=== PATIENT | female | born 1940 | race Caucasian/White ===

== ENCOUNTER 2019-01-26 19:52 | Emergency (ER) | payer MEDICARE, OTHER ==
[~2019-01-26] VITALS: Ht 170.2 cm; Wt 77.1 kg
--- OUTSIDE RECORDS SUMMARY | 2019-01-26 19:55 | XMS REPORT | Summary of Care ---
Author Author RELL ADDISON M.D. Organization Unknown Address Unknown Phone Unavailable Care Team Providers Care Rehabilitation Nurse Name Role Phone RELL ADDISON M.D. Unavailable Unavailable LEVAR RAMOS, WILBUR [place] Unavailable Unavailable Unavailable Unavailable Functional Status Name Dates Details Functional status health issues are not documented Status: Name Dates Details Cognitive status health issues are not documented Status: Problems Name Dates Details Influenza vaccine needed (V04.81, Z23) Status: Active Osteoporosis (733.00, M81.0) Status: Active Diabetes mellitus (250.00, E11.9) Status: Active Essential (primary) hypertension (401.9, I10) Status: Active Mixed hyperlipidemia (272.2, E78.2) Status: Active Hypothyroidism (244.9, E03.9) Status: Active Vitamin D deficiency (268.9, E55.9) Status: Active Medications Name Dates Details Synthroid 100 MCG Oral Tablet TAKE 1 TABLET BY MOUTH DAILY Quantity: 90 CYN M.D., RELL * Start : 23-Sep-2012 Active Calcium + D 600-200 MG-UNIT TABS TAKE 1 TABLET TWICE DAILY. * Refills: 0 CYN M.D., RELL * Start : 23-Sep-2012 Active Vitamin D 1000 UNIT CAPS 1 a day * Refills: 0 CYN M.D.RELL * Start : 23-Sep-2012 Active Janumet 50-500 MG Oral Tablet TAKE 1 TABLET BY MOUTH DAILY * Quantity: 90 Refills: 1 CYN M.D., RELL * Start : 23-Sep-2012 Active Multi Vitamin Daily TABS * Refills: 0 CYN M.D.RELL * Start : 23-Sep-2012 Active Aspirin Adult Low Strength 81 MG Oral Tablet Delayed Release TAKE 1 TABLET DAILY DIRECTED. * Refills: 0 CYN M.D., RELL * Start : 23-Sep-2012 Active Olmesartan Medoxomil-HCTZ 20-12.5 MG Oral Tablet TAKE 1 TABLET BY MOUTH DAILY * Quantity: 90 Refills: 1 CYN M.D., RELL * Start : 23-Sep-2012 Active Ezetimibe-Simvastatin 10-40 MG Oral Tablet TAKE 1 TABLET BY MOUTH EVERY NIGHT AT BEDTIME * Quantity: 90 Refills: 1 RELL ADDISON M.D. * Start : 23-Sep-2012 Active Vitamin E 400 UNIT Oral Capsule 1 a day * Refills: 0 RELL ADDISON M.D. * Start : 23-Sep-2012 Active Vitamin B-12 500 MCG Sublingual Tablet Sublingual 1 a day * Quantity: 100 Refills: 11 RELL ADDISON M.D. * Start : 11-Oct-2012 Active Alendronate Sodium 70 MG Oral Tablet TAKE 1 TABLET BY MOUTH ONCE WEEKLY, TAKE WITH 8 OZ OF WATER 30 TO 60 MINUTES BEF ORE BREAKFAST ON AN EMPTY STOMACH; DO NOT LIE SHAMEKA AFTER * Quantity: 12 Refills: 1 RELL ADDISON M.D. * Start : 11-Oct-2012 Active OneTouch Verio In Vitro Strip Check BG 1x a day * Quantity: 1 Refills: 3 RELL ADDISON M.D. * Start : 03-May-2016 Active 100 Strip Box OneTouch Delica Lancets Fine Check BG 1x a day * Quantity: 100 Refills: 3 RELL ADDISON M.D. 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 History of Fracture (829.0, T14.8XXA) Status: Resolved Procedures Procedure Dates Details History of Transsphenoidal Hypophysectomy Completed History of Cholecystectomy Completed History of Knee Replacement Completed History of Tonsillectomy Completed Immunization Name Dates Details Fluzone INJ Lot #: [id number] on: 10-Jul-2013 Fluzone INJ Lot #: [id number] on: 14-Aug-2014 Fluzone High-Dose 0.5 ML Intramuscular Suspension Prefilled Syringe Lot #: [id number] on: 01-Sep-2016 Fluzone High-Dose 0.5 ML Intramuscular Suspension Prefilled Syringe Lot #: [id number] on: 22-Aug-2017 Family History Name Dates Details Family history of Coronary Artery Disease (V17.49) Status: Active Social History Name Dates Details - Status: Name Dates Details Never smoker Vital Signs Date Test Result Details :36 BP Systolic 118 mm[Hg] Status: BP Diastolic 70 mm[Hg] Status: Heart Rate 90 /min Status: :23 BP Systolic 138 mm[Hg] Status: Comments: Location: E; Position: Sitting BP Diastolic 77 mm[Hg] Status: Comments: Location: E; Position: Sitting Heart Rate 111 /min Status: Height 69 in Status: Weight 166 lb Status: Body Mass Index Calculated 24.51 kg/m2 Status: Body Surface Area Calculated 1.91 m2 Status: Results Date Description Value Details :24 [O] Hemoglobin A1c (in office) HEMOGLOBIN A1c 5.9 :24 [O] Lipid Panel (In Office) CHOLESTEROL, TOTAL 136 HDL CHOLESTEROL 50 TRIGLYCERIDES 109 LDL-CHOLESTEROL 64 NON HDL CHOLESTEROL 86 T. Chol/HDL Ratio 2.7 GLUCOSE 117 :25 Glucose (Point of Care In Office) Glucose POC Lifescan 138 :08 [QL] CMP W/EGFR GLUCOSE 127 mg/dl (Above high threshold) Range: 65-99 Comments: Fasting reference interval For someone without known diabetes, a glucosevalue >125 mg/dL indicates that they may havediabetes and this should be confirmed with afollow-up test. UREA NITROGEN (BUN) 9 mg/dl (Normal) Range: 7-25 CREATININE 0.67 mg/dl (Normal) Range: 0.60-0.93 Comments: For patients >49 years of age, the reference limitfor Creatinine is approximately 13% higher for peopleidentified as -Maced[place]. eGFR NON- 84 {ML/MIN/1.7} (Normal) Range: > OR=60 eGFR 98 {ML/MIN/1.7} (Normal) Range: > OR=60 BUN/CREATININE RATIO NOT APPLICABLE {CALC} Range: 6-22 SODIUM 137 mmol/L (Normal) Range: 135-146 POTASSIUM 4.1 mmol/L (Normal) Range: 3.5-5.3 CHLORIDE 97 mmol/L (Below low threshold) Range: 98-110 CARBON DIOXIDE 30 mmol/L (Normal) Range: 20-31 CALCIUM 9.5 mg/dl (Normal) Range: 8.6-10.4 PROTEIN, TOTAL 6.9 g/dl (Normal) Range: 6.1-8.1 ALBUMIN 3.3 g/dl (Below low threshold) Range: 3.6-5.1 GLOBULIN 3.6 {G/DL__CALC} (Normal) Range: 1.9-3.7 ALBUMIN/GLOBULIN RATIO 0.9 {CALC} (Below low threshold) Range: 1.0-2.5 BILIRUBIN, TOTAL 0.4 mg/dl (Normal) Range: 0.2-1.2 ALKALINE PHSPHATASE 83 u/l (Normal) Range: 33-130 AST 21 u/l (Normal) Range: 10-35 ALT 21 u/l (Normal) Range: 6-29 [id number]-[id number] [[facility]] T4, FREE T4, FREE 1.4 ng/dl (Normal) Range: 0.8-1.8 0-Exp-[id number]:08 [[facility]] TSH, 3RD GENERATION TSH 2.71 {MIU/L} (Normal) Range: 0.40-4.50 0-Hyf-[id number]:08 [[facility]] VITAMIN D, 25-HYDROXY, LC/MS/MS Comments: REPORT COMMENT:FASTING:YES VITAMIN D,25-OH,TOTAL,IA 55 ng/ml (Normal) Range: 30-100 Comments: Vitamin D Status 25-OH Vitamin D: Deficiency: <20 ng/mLInsufficiency: 20 - 29 ng/mLOptimal: > or=30 ng/mL For 25-OH Vitamin D testing on patients on D2-supplementation and patients for whom quantitation of D2 and D3 fractions is required, the QuestAssureD()25-OH VIT D, (D2,D3), LC/MS/MS is recommended: order code [id number] (patients >2yrs). For more information on this test, go to:http://education.[email or web address]/faq/HFB618(This link is being provided for informational/educational purposes only.) Plan of Care Name Dates Details Planned Observations Planned Goals not documented Planned Encounters Appointment; RELL ADDISON M.D. On: 10-Apr-2018 9:30 Instructions Name Dates Details Instructions not documented Encounters Appointment; RELL ADDISON M.D. Encounter Diagnosis: Problem not documented On: 01-Jan-2016 9:30 Appointment; RELL ADDISON M.D. Encounter Diagnosis: Problem not documented On: 07-May-2016 9:30 Appointment; RELL ADDISON M.D. Encounter Diagnosis: Problem not documented On: 01-Sep-2016 9:30 Appointment; RELL ADDISON M.D. Encounter Diagnosis: Problem not documented On: 03-Jan-2017 12:00 Appointment; RELL ADDISON M.D. Encounter Diagnosis: Problem not documented On: 27-Apr-2017 10:30 Appointment; RELL ADDISON M.D. Encounter Diagnosis: Problem not documented On: 22-Aug-2017 9:00 Appointment; RELL ADDISON M.D. Encounter Diagnosis: Problem not documented On: 21-Dec-2017 9:00
--- OUTSIDE RECORDS SUMMARY | 2019-01-26 19:55 | XMS REPORT ---
Author Author [facility] Address Unknown Phone Unavailable Care Team Providers Care Touring Production Manager Name Role Phone Unavailable Unavailable Payers Payer Name Policy Type Policy Number Effective Date Expiration Date Problems This patient has no known problems. Allergies, Adverse Reactions, Alerts Allergy Name Allergy Type Status Severity Reaction(s) Onset Date Inactive Date Treating Clinician Comments Penicillins DA Active U 2018-10-31 00:00:00 hydrocodone DA Active U 2018-10-31 00:00:00 Medications This patient has no known medications.
[2019-01-26] MEDS ORDERED: SODIUM CHLORIDE 0.9% 500ML 500 ML IV STA (20:24)
[2019-01-26] MEDS ORDERED: ACETAMINOPHEN 325 MG TAB PO ONE (20:30)
--- NOTE | 2019-01-26 21:27 | Diagnostic Imaging Report ---
EXAMINATION: CXR 2 VIEW - HOPD INDICATION: Twisted right knee. Hit head. COMPARISON: None FINDINGS: TUBES and LINES: None. LUNGS: Lungs are hyper inflated. Lungs are clear. Bronchiectasis predominantly in the lower lobes. There is no evidence of pneumonia or pulmonary edema. PLEURA: No pleural effusion or pneumothorax. HEART AND MEDIASTINUM: The cardiomediastinal silhouette is unremarkable. BONES AND SOFT TISSUES: Mild scoliotic changes. There are degenerative changes in the thoracic spine. Soft tissues are unremarkable. UPPER ABDOMEN: No free air under the diaphragm. IMPRESSION: Emphysema. No acute thoracic abnormality. Signed by: Dr. Diego Charles M.D. on 01/26/2019 9:23 PM
--- NOTE | 2019-01-26 21:28 | Diagnostic Imaging Report ---
EXAMINATION: Head CT without contrast. HISTORY:Fall. COMPARISON:None. TECHNIQUE: Multidetector axial images were obtained from the foramen magnum to the vertex without contrast. The images were reconstructed using brain and bone algorithms. Thin section brain images were reformatted into coronal and sagittal planes. Dose modulation, iterative reconstruction, and/or weight based adjustment of the mA/kV was utilized to reduce the radiation dose to as low as reasonably achievable. Intravenous contrast: None IMAGE QUALITY: Acceptable. FINDINGS: Skull/scalp: Mild left frontal scalp soft tissue edema. No soft tissue emphysema or radiopaque foreign body. No acute depressed or displaced calvarial fracture. Parenchyma: Nonspecific bilateral frontoparietal patchy white matter hypodensity are likely related to small vessel ischemic changes. No acute hemorrhage, mass or acute major vascular territorial infarct. Arteries: No density suggestive of thrombosis. Dural sinuses: No abnormal density suggestive of thrombosis. Ventricles: Moderate compensated dilatation due to volume loss. No acute hydrocephalus. Extra-axial spaces: No abnormal density. Brain volume: Generalized age-related cerebral volume loss. Craniocervical junction: No mass, Chiari malformation, or basilar invagination. Sella: No mass. Paranasal/mastoid sinuses: Complete opacification of left sphenoid sinus with intrinsic hyperdensity, thickened and sclerotic sinus wall with the focal posterior sinus wall osseous defect. Findings may represent inspissated secretion in association with chronic inflammatory process or associated fungal sinusitis in appropriate clinical setting. Mild mucosal thickening with bubbly secretions in right sphenoid sinus. IMPRESSION: 1. Mild left frontal scalp soft tissue edema. No acute fracture. 2. No acute posttraumatic intracranial abnormality. 3. Generalized age-related cerebral volume loss and I'll supratentorial white matter microvascular ischemic changes. 4. Chronic inflammatory changes with inspissated secretions vs fungal sinusitis in left sphenoid sinus with focal osseous defect in the posterior sinus wall. Signed by: Dr. Raquel Glass M.D. on 01/26/2019 9:25 PM
--- NOTE | 2019-01-26 21:34 | Diagnostic Imaging Report ---
History:Fall. Comparison studies: None Technique: Axial images were obtained through the maxillofacial region. Coronal and sagittal images reconstructed from the axial data. Dose modulation, iterative reconstruction, and/or weight based adjustment of the mA/kV was utilized to reduce the radiation dose to as low as reasonably achievable. Intravenous contrast: None Findings: Soft tissues: Mild left frontal scalp soft tissue edema. No soft tissue emphysema or radiopaque foreign body. Bones: No acute fracture. Degenerative changes in bilateral temporomandibular joints. Multiple missing teeth. Advanced degenerative changes in the cervical spine, particularly C2-C3: Mild right foraminal stenosis due to uncovertebral arthrosis. C3-C4: Mild right and severe left foraminal stenosis due to facet and uncovertebral arthrosis. C4-C5: Severe degenerative disc disease. Posterior disc osteophyte complex without canal stenosis. Severe bilateral foraminal stenosis due to facet and uncovertebral arthrosis. C5-C6: Severe degenerative disc disease. Posterior disc osteophyte complex results in mild canal stenosis. Severe bilateral foraminal stenosis due to facet and uncovertebral arthrosis. C6-C7: Severe right foraminal stenosis due to facet and uncovertebral arthrosis. Orbits: Globes: Intact Extra or intraconal abnormalities: None. Paranasal sinuses: Mild mucosal thickening with air-fluid level and bubbly secretions in right sphenoid sinus. Complete hyperdense opacification of left sphenoid sinus with thickened and sclerotic clinton and focal osseous defect in the anterior and posterior lateral clinton, differential consideration includes chronic sinusitis with inspissated secretion vs fungal sinusitis in appropriate clinical setting. IMPRESSION: 1. Mild left frontal scalp soft tissue edema. 2. No acute fracture. Signed by: Dr. Raquel Glass M.D. on 01/26/2019 9:30 PM
[2019-01-26 23:31] VITALS: BP 121/79
== END 2019-01-26 23:40 | disposition home or self-care (01) ==
LOC: FSED 19:52
DX: S00.83XA Contusion of other part of head, initial encounter (principal); W18.30XA Fall on same level, unspecified, initial encounter; Y92.008 Other place in unspecified non-institutional (private) residence as the place of occurrence of the external cause; M25.461 Effusion, right knee; M17.11 Unilateral primary osteoarthritis, right knee; I10 Essential (primary) hypertension; E11.9 Type 2 diabetes mellitus without complications; E03.9 Hypothyroidism, unspecified; I25.10 Atherosclerotic heart disease of native coronary artery without angina pectoris; E78.5 Hyperlipidemia, unspecified
CPT/HCPCS: 70450; 70486; 71046; 80053; 81003; 85025; 87400; 99284; J7040